=== PATIENT | male | born 1995 ===

== ENCOUNTER 2017-04-04 23:20 | Emergency (ER) | payer OTHER ==
[2017-04-04 23:26] VITALS: BP 132/83; RESP 18; TEMP 99.2; O2SAT 100
[2017-04-04] MEDS ORDERED: Sodium Chloride 0.9% 1,000 ML IV STA (23:38)
--- NOTE | 2017-04-04 23:44 | ED PDOC ---
HPI: Seizure Time Seen by Provider: 04/04/17 23:25 Chief Complaint (Nursing): Seizure Chief Complaint (Provider): seizure History Per: Patient, EMS, Family Recent Seizure Activity Began: Hours Ago: (1) Length Of Seizures (Duration): Unknown Precipitating Factor(s): Missed Dose Of Anti-seizure Medication, Recent Street Drugs Associated Symptoms: Injury As A Result Of Seizure Activity Additional History Per: Patient, EMS, Family Additional Complaint(s): 21 y/o male history of seizures brought in by EMS for eval of seizure. Patient states he has not taken his Keppra medication in 4 days due to side effects; tonight he was smoking marijuana and afterwards felt as if he was going to have a seizure so he sat on his bed and called his girlfriend. Patient states he then was found 2 blocks down from his house in his boxers, post-ictal as per EMS. Father at bedside, states patient's girlfriend called him stating she was on the phone with patient when the phone dropped and she heard patient hit the ground; seizure unwitnessed otherwise. Patient complaining of headache, neck discomfort, and feeling generally fatigued. Denies dizziness, nausea/vomiting, extremity numbness/weakness, chest pain, shortness of breath, palpitations. Past Medical History Reviewed: Historical Data, Nursing Documentation, Vital Signs Vital Signs: Last Vital Signs Temp 99.2 F 04/04/17 23:22 Pulse 132 H 04/04/17 23:22 Resp 18 04/04/17 23:22 BP 132/83 04/04/17 23:22 Pulse Ox 100 04/05/17 00:37 - Medical History PMH: Seizures - Surgical History Surgical History: No Surg Hx - Family History Family History: States: Unknown Family Hx - Allergies Allergies/Adverse Reactions: Allergies Allergy/AdvReac Type Severity Reaction Status Date / Time No Known Allergies Allergy Verified 04/04/17 23:21 Review of Systems ROS Statement: Except As Marked, All Systems Reviewed And Found Negative Neurological: Positive for: Seizures Physical Exam - Reviewed Nursing Documentation Reviewed: Yes Vital Signs Reviewed: Yes - Physical Exam Appears: Positive for: Well, Non-toxic, No Acute Distress Head Exam: Positive for: ATRAUMATIC, NORMAL INSPECTION, NORMOCEPHALIC Skin: Positive for: Normal Color Eye Exam: Positive for: Normal appearance, EOMI, PERRL ENT: Positive for: Normal ENT Inspection Cardiovascular/Chest: Positive for: Regular Rate, Rhythm Respiratory: Positive for: Normal Breath Sounds Gastrointestinal/Abdominal: Positive for: Normal Exam Back: Positive for: Normal Inspection Extremity: Positive for: Normal ROM Neurologic/Psych: Positive for: Alert, Oriented. Negative for: Motor/Sensory Deficits - Laboratory Results Result Diagrams: 04/04/17 23:58 04/04/17 23:58 - ECG ECG: Positive for: Viewed By Me (reviewed by ED attending) ECG Rhythm: Positive for: Sinus Tachycardia O2 Sat by Pulse Oximetry: 100 - Progress ED Course And Treament: labs, urine, CT head, IV fluids EXAM: CT Head Without Intravenous Contrast CLINICAL HISTORY: 21 years, male; Injury or trauma; Fall; Initial encounter; Blunt trauma ( contusions or hematomas); Additional info: Seizure, head injury TECHNIQUE: Axial computed tomography images of the head/brain without intravenous contrast. This CT exam was performed using one or more of the following dose reduction techniques: automated exposure control, adjustment of the mA and/or kV according to patient size, and/or use of iterative reconstruction technique. Coronal and sagittal reformatted images were created and reviewed. COMPARISON: No relevant prior studies available. FINDINGS: Brain: Unremarkable. No hemorrhage. No significant white matter disease. No edema. Ventricles: Unremarkable. No ventriculomegaly. Bones/joints: Unremarkable. No acute fracture. Soft tissues: Unremarkable. Sinuses: Unremarkable as visualized. No acute sinusitis. Mastoid air cells: Unremarkable as visualized. No mastoid effusion. IMPRESSION: No acute findings. EXAM: CT Cervical Spine Without Intravenous Contrast CLINICAL HISTORY: 21 years, male; Injury or trauma; Fall; Initial encounter; Blunt trauma; Additional info: Seizure, fall TECHNIQUE: Axial computed tomography images of the cervical spine without intravenous contrast. This CT exam was performed using one or more of the following dose reduction techniques : automated exposure control, adjustment of the mA and/or kV according to patient size, and/ or use of iterative reconstruction technique. Coronal and sagittal reformatted images were created and reviewed. COMPARISON: No relevant prior studies available. FINDINGS: Vertebrae: Nonspecific mild reversal of the normal cervical lordosis. No acute fracture. Discs/spinal canal/neural foramina: No acute findings. No spinal canal stenosis. Soft tissues: Unremarkable. Lymph nodes: Mildly prominent bilateral cervical chain lymph nodes nonspecific but possibly reactive. Lung apices: Unremarkable as visualized. IMPRESSION: No acute findings. On re-eval, patient states he is feeling better. Patient educated on findings, discharged with instructions to follow up neurologist in 2-3 days. Advised to take Keppra as instructed. Patient offered dose now but states he will take it during the times he usually takes it. Advised to avoid drugs/alcohol. Return to ED for worsening/concerning symptoms. Disposition - Clinical Impression Clinical Impression: Seizure - Patient ED Disposition Is Patient to be Admitted: No Counseled Patient/Family Regarding: Studies Performed, Diagnosis, Need For Followup - Disposition Disposition: Routine/Home Disposition Time: 01:28 Condition: IMPROVED Additional Instructions: Continue Keppra as instructed. Follow up with Neurologist in 2-3 days. Return to ED for worsening/concerning symptoms. Instructions: Recurrent Seizures in Adults (ED)
[2017-04-05 00:11] LABS: BASO % 0.5 % (0.0-2.0); EOS # 0.1 K/uL (0.0-0.7); EOS % 1.1 % (0.0-4.0); HEMOGLOBIN 14.4 g/dL (12.0-18.0); LYMPH # 2.2 K/uL (1.0-4.3); LYMPH % 24.7 % (20.0-40.0); MEAN CELL VOLUME 84.6 fl (80.0-94.0); MEAN CORPUSCULAR HEMOGLOBIN 29.3 pg (27.0-31.0); MEAN CORPUSCULAR HGB CONC 34.7 g/dL (33.0-37.0); MEAN PLATELET VOLUME 8.6 fl (7.2-11.7); MONO # 0.7 K/uL (0.0-0.8); MONO % 8.3 % (0.0-10.0); NEUT # 5.7 K/uL (1.8-7.0); NEUT % 65.4 % (50.0-75.0); NRBC % 0.2 % (0.0-0.0); RBC 4.91 Mil/uL (4.40-5.90); RED CELL DISTRIBUTION WIDTH 12.8 % (11.5-14.5); WHITE BLOOD COUNT 8.8 K/uL (4.8-10.8)
[2017-04-05 00:12] LABS: ALB/GLOB RATIO 1.3 (1.0-2.1); ALBUMIN 4.4 g/dL (3.5-5.0); ALT/SGPT 86 U/L (21-72); AST/SGOT 58 U/L (17-59); BLOOD UREA NITROGEN 16 mg/dl (9-20); CALCIUM 9.3 mg/dL (8.4-10.2); GFR AFRICAN-AMERICAN > 60; GFR NON-AFRICAN AMERICAN > 60
[2017-04-05 01:18] LABS: BARBITURATES, UR NEGATIVE (NEGATIVE); BENZODIAZEPINES, UR NEGATIVE (NEGATIVE); OPIATES, UR NEGATIVE (NEGATIVE); PHENCYCLIDINE, UR NEGATIVE (NEGATIVE)
[2017-04-05 01:30] VITALS: PULSE 81
--- NOTE | 2017-04-05 08:41 | CT ---
PROCEDURE: CT HEAD WITHOUT CONTRAST. HISTORY: seizure, head injury COMPARISON: None available. TECHNIQUE: Axial computed tomography images were obtained through the head/brain without intravenous contrast. Radiation dose: Total exam DLP = 862.64 mGy-cm. This CT exam was performed using one or more of the following dose reduction techniques: Automated exposure control, adjustment of the mA and/or kV according to patient size, and/or use of iterative reconstruction technique. FINDINGS: HEMORRHAGE: No intracranial hemorrhage. BRAIN: No mass effect or edema. No atrophy or chronic microvascular ischemic changes. VENTRICLES: Unremarkable. No hydrocephalus. CALVARIUM: Unremarkable. PARANASAL SINUSES: Unremarkable as visualized. No significant inflammatory changes. MASTOID AIR CELLS: Unremarkable as visualized. No inflammatory changes. OTHER FINDINGS: None. IMPRESSION: No intracranial mass, hemorrhage or evidence of acute infarct. Unremarkable examination. Preliminary interpretation of this examination was reported by [facility] at 12:21 a.m. on 04/05/2017. There is concurrence of this report with the preliminary interpretation.
--- NOTE | 2017-04-05 08:45 | CT ---
PROCEDURE: CT Cervical Spine without contrast HISTORY: Seizure, fall COMPARISON: None available. TECHNIQUE: Axial computed tomography images were obtained of the cervical spine without the use of intravenous contrast. Coronal and sagittal reformatted images were created and reviewed. Radiation dose: Total exam DLP = 677.11 mGy-cm. This CT exam was performed using one or more of the following dose reduction techniques: Automated exposure control, adjustment of the mA and/or kV according to patient size, and/or use of iterative reconstruction technique. FINDINGS: VERTEBRAE: No fracture. Normal alignment. No destructive bony lesion. DISCS/SPINAL CANAL/NEURAL FORAMINA: No significant central canal or neural foraminal stenosis. Discs heights are grossly preserved. PARASPINAL SOFT TISSUES: Unremarkable. No significant cervical lymphadenopathy. No other soft tissue abnormality OTHER FINDINGS: None. IMPRESSION: Unremarkable CT of the cervical spine. Preliminary interpretation of this examination was reported by [facility] at 12:27 a.m. on 04/05/2017. There is concurrence of this report with the preliminary interpretation.
== END 2017-04-05 01:51 | disposition home or self-care (01) ==
LOC: H.ER 23:20
DX: R56.9 Unspecified convulsions (principal); W19.XXXA Unspecified fall, initial encounter